=== PATIENT | female | born 1980 | race Hispanic/Latino ===

== ENCOUNTER 2019-04-15 08:02 | Outpatient (CLI) | payer BC ==
--- NOTE | 2019-04-15 10:11 | ULT ---
BLADDER ULTRASOUND: INDICATIONS: History of hematuria. COMPARISON: None. FINDINGS: The pre-void bladder volume was 60 mL. The post-void bladder volume was 9.5 mL. There are bilateral u reteral jets identified. The pre-void bladder wall measurement was 0.2 cm. The post-void bladder wall measurements was 0.5 to 1 cm. No intraluminal mass was evident. IMPRESSION: Mild bladder wall thickening. A component of cystitis cannot be entirely excluded. POS: OFF
== END 2019-04-15 08:03 | disposition home or self-care (01) ==
LOC: BICULT 08:02
PROVIDERS: ATTEND Family Medicine
DX: R31.9 Hematuria, unspecified (principal); N32.89 Other specified disorders of bladder
CPT/HCPCS: 76856